=== PATIENT | male | born 1990 | race Caucasian/White ===

== ENCOUNTER 2019-09-15 15:00 | Emergency (ER) | payer BC ==
--- NOTE | 2019-09-15 15:09 | EDM.PDOC ---
ED HPI GENERAL MEDICAL PROBLEM - General Stated Complaint: DIZZY, SOB, Time Seen by Provider: 09/15/19 15:09 Source of Information: Reports: Patient History Limitations: Reports: No Limitations - History of Present Illness INITIAL COMMENTS - FREE TEXT/NARRATIVE: 29-year-old male who reports at approximately 11 AM today while at work and sitting and talking to a customer an acute onset of severe spinning dizziness. He states that he felt near syncopal. He reports that he got up and walked outside to get some fresh air but the dizziness did not seem to lindsay and he ended up going home. The dizziness was in that it seemed to wax and wane in intensity. To be worse with movement of his head but at times it would just come on with no movement of his head. He also felt somewhat short of breath when he had extreme dizziness. He had no headache. He had no chest pain. He didn 't feel at times and his heart was beating more fast and normal. He did feel somewhat better when lying down. For about the past month and a half he has had just an and has been through 2 courses of antibiotics and reports that he still has bilateral ear pain and some sinus congestion with intermittent discharge from his nose. He has had no fevers or chills. Nausea has been associated with this but there has been no vomiting. His vision appears to be normal. He feels very anxious right now. He did have some mild tingling and numbness in his left hand distally with this but he has no symptoms now. He has had episodes of dizziness in the recent past but they have been short-lived, mild nothing as severe as he had today. He has been eating and drinking normally. No diarrhea. The pain in his ears is mild and it is a full, pressure type feeling. There is no neck stiffness. There are no other associated signs or symptoms. There are no other modifying factors. Apparently he has had some issues with anxiety recently and he was prescribed BuSpar but has not been on that medication yet. He presents here via private vehicle with his significant other. Onset: Today Duration: Waxing/Waning (But not going away) Location: Reports: Other (Bilateral ears) Quality: Reports: Pressure (Fullness) Severity: Mild (The ear pain is mild but the dizziness is moderate to severe and varies in intensity.) Improves with: Reports: Rest, Other Worsens with: Reports: Movement Associated Symptoms: Reports: Nausea/Vomiting, Shortness of Breath, Other ( Otherwise as above) Treatments BEHAVIORAL HEALTH TECH: Reports: Other (see below) - Related Data Allergies Allergy/AdvReac Type Severity Reaction Status Date / Time fluoxetine Allergy Hives Verified 09/15/19 15:09 Home Meds: Home Meds Cefdinir [Omnicef] 600 mg PO DAILY 10 Days #20 cap 09/15/19 [Rx] Meclizine [Antivert] 25 mg PO Q6H PRN #14 tab 09/15/19 [Rx] Metoprolol Succinate 50 mg DAILY 09/15/19 [History] lisinopriL [Lisinopril] 10 mg DAILY 09/15/19 [History] Past Medical History Cardiovascular History: Reports: Hypertension Psychiatric History: Reports: Anxiety - Past Surgical History Other Surgical History Comment: No previous surgeries. Social & Family History - Tobacco Use Smoking Status *Q: Never Smoker Tobacco Use Within Last Twelve Months: Smokeless Tobacco ([place]) - Alcohol Use Alcohol Use History: Yes Alcohol Use Frequency: Weekly (3-4 times a week) - Living Situation & Occupation Living situation: Reports: with Significant Other Occupation: Employed ([employer]) ED ROS GENERAL - Review of Systems Review Of Systems: See Below Constitutional: Reports: No Symptoms HEENT: Reports: Ear Pain. Denies: Vision Change Respiratory: Reports: Shortness of Breath (With the episodes of extreme dizziness) Cardiovascular: Reports: Palpitations. Denies: Chest Pain Endocrine: Reports: No Symptoms GI/Abdominal: Reports: Nausea (Mild and intermittent). Denies: Vomiting : Reports: No Symptoms Musculoskeletal: Reports: No Symptoms Skin: Reports: No Symptoms Neurological: Reports: Dizziness. Denies: Headache Psychiatric: Reports: Anxiety Hematologic/Lymphatic: Reports: No Symptoms Immunologic: Reports: No Symptoms ED EXAM, GENERAL - Physical Exam Exam: See Below Exam Limited By: No Limitations General Appearance: Alert, WD/WN, Anxious, Moderate Distress Eye Exam: Bilateral Eye: EOMI, Normal Inspection, PERRL Ears: Normal External Exam, Normal Canal, Other (Bilateral TMs are dull) Ear Exam: Bilateral Ear: Auricle Normal, Canal Normal, TM Dull Nose: Normal Inspection, Normal Mucosa, No Blood Throat/Mouth: Normal Inspection, Normal Lips, Normal Oropharynx, Normal Voice, No Airway Compromise Head: Atraumatic, Normocephalic Neck: Normal Inspection, Supple, Non-Tender, Full Range of Motion Respiratory/Chest: No Respiratory Distress, Lungs Clear, Normal Breath Sounds, No Accessory Muscle Use, Chest Non-Tender Cardiovascular: Normal Peripheral Pulses, Regular Rate, Rhythm, No Edema, No JVD Peripheral Pulses: 2+: Radial (L), Radial (R) GI/Abdominal: Normal Bowel Sounds, Soft, Non-Tender, No Organomegaly, No Distention Back Exam: Normal Inspection Extremities: Normal Inspection, Normal Range of Motion, Non-Tender, Normal Capillary Refill Neurological: Alert, Oriented, CN II-XII Intact, Normal Cognition, Normal Gait, No Motor/Sensory Deficits Psychiatric: Anxious Skin Exam: Warm, Dry, Intact, Normal Color, No Rash Lymphatic: No Adenopathy EKG INTERPRETATION EKG Date: 09/15/19 Time: 15:58 Rhythm: NSR Rate (Beats/Min): 78 [place]: Normal P-Wave: Present QRS: Normal ST-T: Normal QT: Normal Comparison: NA - No Prior EKG EKG Interpretation Comments: Normal EKG Course - Vital Signs Last Recorded V/S: Last Vital Signs Temp 36.6 C 09/15/19 15:03 Pulse 84 09/15/19 15:03 Resp 20 09/15/19 15:03 BP 160/78 H 09/15/19 15:03 Pulse Ox 99 09/15/19 15:03 - Orders/Labs/Meds Orders: Active Orders 24 hr Category Date Time Status EKG Documentation Completion [RC] ASDIRECTED Care 09/15/19 15:47 Active Orthostatic Vital Signs [RC] ASDIRECTED Care 09/15/19 15:46 Active Sodium Chloride 0.9% [Saline Flush] Med 09/15/19 15:46 Active 10 ml FLUSH ASDIRECTED PRN Peripheral IV Insertion Adult [OM.PC] Routine Oth 09/15/19 15:46 Ordered EKG 12 Lead [EK] Routine Ther 09/15/19 15:46 Ordered Medication Orders Sodium Chloride (Saline Flush) 10 ml FLUSH ASDIRECTED PRN PRN Reason: Keep Vein Open Last Admin: 09/15/19 16:20 Dose: 10 ml Labs: Laboratory Tests 09/15/19 09/15/19 09/15/19 Range/Units 15:46 16:21 16:21 WBC 11.3 (4.5-12.0) X10-3/uL RBC 4.87 (4.30-5.75) x10(6)uL Hgb 15.6 (13.5-17.8) g/dL Hct 44.9 (30.0-51.3) % MCV 92.1 (80-96) fL MCH 32.0 (27.7-33.6) pg MCHC 34.7 (32.2-35.4) g/dL RDW 12.1 (11.5-15.5) % Plt Count 288 (125-369) X10(3)uL MPV 7.6 (7.4-10.4) fL Neut % (Auto) 78.6 (46-82) % Lymph % (Auto) 13.1 (13-37) % [place] % (Auto) 7.3 (4-12) % Eos % (Auto) 0 L (1.0-5.0) % Baso % (Auto) 1 (0-2) % Neut # (Auto) 8.9 H (1.6-8.3) # Lymph # (Auto) 1.5 (0.6-5.0) # [place] # (Auto) 0.8 (0.0-1.3) # Eos # (Auto) 0.0 (0.0-0.8) # Baso # (Auto) 0.1 (0.0-0.2) # Sodium 142 (135-145) mmol/L Potassium 4.2 (3.5-5.3) mmol/L Chloride 102 (100-110) mmol/L Carbon Dioxide 28 (21-32) mmol/L BUN 11 (7-18) mg/dL Creatinine 0.9 (0.70-1.30) mg/dL Est Cr Clr Drug Dosing 131.73 mL/min Estimated GFR (MDRD) > 60 (>60) BUN/Creatinine Ratio 12.2 (9-20) Glucose 96 (80-116) mg/dL Calcium 9.4 (8.6-10.2) mg/dL Magnesium 2.1 (1.8-2.5) mg/dL Total Bilirubin 0.7 (0.1-1.3) mg/dL AST 33 H (5-25) IU/L ALT 57 H (12-36) U/L Alkaline Phosphatase 52 L (56-112) IU/L C-Reactive Protein (0.5-0.9) mg/dL Total Protein 8.1 H (6.0-8.0) g/dL Albumin 4.7 (3.5-5.2) g/dL Globulin 3.4 g/dL Albumin/Globulin Ratio 1.4 TSH, Ultra Sensitive (0.36-3.74) IU/mL Urine Color Yellow (YELLOW) Urine Appearance Clear (CLEAR) Urine pH 7.0 H (5.0-6.5) Ur Specific [place] 1.005 L (1.010-1.025) Urine Protein Negative (NEGATIVE) mg/dL Urine Glucose (UA) Normal (NORMAL) mg/dL Urine Ketones Negative (NEGATIVE) mg/dL Urine Occult Blood Negative (NEGATIVE) Urine Nitrite Negative (NEGATIVE) Urine Bilirubin Negative (NEGATIVE) Urine Urobilinogen Normal (NEGATIVE) mg/dL Ur Leukocyte Esterase Negative (NEGATIVE) Urine RBC Not seen (0-5) Urine WBC Not seen (0-5) 09/15/19 09/15/19 Range/Units 16:21 16:21 WBC (4.5-12.0) X10-3/uL RBC (4.30-5.75) x10(6)uL Hgb (13.5-17.8) g/dL Hct (30.0-51.3) % MCV (80-96) fL MCH (27.7-33.6) pg MCHC (32.2-35.4) g/dL RDW (11.5-15.5) % Plt Count (125-369) X10(3)uL MPV (7.4-10.4) fL Neut % (Auto) (46-82) % Lymph % (Auto) (13-37) % [place] % (Auto) (4-12) % Eos % (Auto) (1.0-5.0) % Baso % (Auto) (0-2) % Neut # (Auto) (1.6-8.3) # Lymph # (Auto) (0.6-5.0) # [place] # (Auto) (0.0-1.3) # Eos # (Auto) (0.0-0.8) # Baso # (Auto) (0.0-0.2) # Sodium (135-145) mmol/L Potassium (3.5-5.3) mmol/L Chloride (100-110) mmol/L Carbon Dioxide (21-32) mmol/L BUN (7-18) mg/dL Creatinine (0.70-1.30) mg/dL Est Cr Clr Drug Dosing mL/min Estimated GFR (MDRD) (>60) BUN/Creatinine Ratio (9-20) Glucose (80-116) mg/dL Calcium (8.6-10.2) mg/dL Magnesium (1.8-2.5) mg/dL Total Bilirubin (0.1-1.3) mg/dL AST (5-25) IU/L ALT (12-36) U/L Alkaline Phosphatase (56-112) IU/L C-Reactive Protein 0.4 L (0.5-0.9) mg/dL Total Protein (6.0-8.0) g/dL Albumin (3.5-5.2) g/dL Globulin g/dL Albumin/Globulin Ratio TSH, Ultra Sensitive 1.22 (0.36-3.74) IU/mL Urine Color (YELLOW) Urine Appearance (CLEAR) Urine pH (5.0-6.5) Ur Specific [place] (1.010-1.025) Urine Protein (NEGATIVE) mg/dL Urine Glucose (UA) (NORMAL) mg/dL Urine Ketones (NEGATIVE) mg/dL Urine Occult Blood (NEGATIVE) Urine Nitrite (NEGATIVE) Urine Bilirubin (NEGATIVE) Urine Urobilinogen (NEGATIVE) mg/dL Ur Leukocyte Esterase (NEGATIVE) Urine RBC (0-5) Urine WBC (0-5) Meds: Medications Generic Name Dose Route Start Last Admin Trade Name Freq PRN Reason Stop Dose Admin Sodium Chloride 10 ml 09/15/19 15:46 09/15/19 16:20 Saline Flush FLUSH 10 ml ASDIRECTED PRN Administration Keep Vein Open Discontinued Medications Generic Name Dose Route Start Last Admin Trade Name Freq PRN Reason Stop Dose Admin Diazepam 2.5 mg 09/15/19 15:48 09/15/19 16:23 Valium IVPUSH 09/15/19 15:49 2.5 mg ONETIME ONE Administration Diazepam 2.5 mg 09/15/19 17:39 Valium IVPUSH 01/24/20 17:40 ONETIME ONE Sodium Chloride 1,000 mls @ 999 mls/hr 09/15/19 15:48 09/15/19 16:22 Normal Saline IV 09/15/19 16:48 999 mls/hr .BOLUS ONE Administration Meclizine HCl 25 mg 09/15/19 15:48 09/15/19 16:24 Antivert PO 09/15/19 15:49 25 mg ONETIME ONE Administration - Radiology Interpretation Free Text/Narrative:: CT scan of the head showed no acute abnormality and this included no evidence of sinusitis per the radiologist. - Re-Assessments/Exams Free Text/Narrative Re-Assessment/Exam: 09/15/19 18:00: Lab tests are reassuring except for mild elevation in his liver function tests. The CT scan was normal. He has received milliliters a bolus, meclizine 25 mg by mouth and Valium 2.5 mg IV. His dizziness is much improved, however, he still has some dizziness. He would rated as about half of what he had. He is having no shortness of breath. He has remained vitally stable. I feel that he is stable for discharge at this point. I discussed with the patient that to consider withholding alcohol (secondary to his elevated liver function tests). I will also place the patient on cefdinir for treatment of his ear infection. I will also give the patient a prescription for meclizine to use for dizziness. He should take a Claritin daily. He also needs to follow-up with Dr. Hopson in the next 1-2 weeks as he will need workup and rechecking of his liver function tests. Departure - Departure Time of Disposition: 18:15 Disposition: Home, Self-Care 01 Condition: Good (Improved) Clinical Impression: Dizziness, Elevated liver function tests, Anxiety Middle ear infection affecting both ears Qualifiers: Otitis media type: unspecified Qualified Code(s): H66.93 - Otitis media, unspecified, bilateral - Discharge Information Prescriptions: Cefdinir [Omnicef] 600 mg PO DAILY 10 Days #20 cap Meclizine [Antivert] 25 mg PO Q6H PRN #14 tab PRN Reason: Dizziness Instructions: Otitis Media, Adult, [id number], Dizziness, [id number] Referrals: Law Hopson MD [Primary Care Provider] - Additional Instructions: Your EKG was normal. The CT scan of your head was normal and it showed no evidence of a sinus infection. Your blood tests were all reassuringly normal except you had some mild elevation in your liver tests. As we discussed this could be related to excess alcohol use and I would suggest that you decrease your alcohol use for the time being. I am unsure why you are having the dizziness but you do appear to have bilateral ear infections and I am treating you for this (Cefdinir 300 mg). I have also given you a prescription of meclizine that you could use as needed for dizziness. This is for treating your symptom only and you should only take the meclizine if you are having dizziness. You should also take a Claritin daily as a trial. Increase your fluid intake. No work for the next 2 days. Back to the emergency department for worsening dizziness, unrelenting vomiting, high fever, severe headache any other concerning sign or symptom. Follow-up with Dr. Hopson within the next 1-2 weeks as you will need to have your liver tests rechecked still you may need further workup into her symptoms of dizziness and anxiety. Sepsis Event Note - Focused Exam Vital Signs: Vital Signs Temp Pulse Resp BP Pulse Ox 09/15/19 15:03 36.6 C 84 20 160/78 H 99 Date Exam was Performed: 09/15/19 Time Exam was Performed: 18:04 - My Orders Last 24 Hours: My Active Orders 09/15/19 15:46 Orthostatic Vital Signs [RC] ASDIRECTED Sodium Chloride 0.9% [Saline Flush] 10 ml FLUSH ASDIRECTED PRN Peripheral IV Insertion Adult [OM.PC] Routine EKG 12 Lead [EK] Routine 09/15/19 15:47 EKG Documentation Completion [RC] ASDIRECTED - Assessment/Plan Last 24 Hours: My Active Orders 09/15/19 15:46 Orthostatic Vital Signs [RC] ASDIRECTED Sodium Chloride 0.9% [Saline Flush] 10 ml FLUSH ASDIRECTED PRN Peripheral IV Insertion Adult [OM.PC] Routine EKG 12 Lead [EK] Routine 09/15/19 15:47 EKG Documentation Completion [RC] ASDIRECTED
[2019-09-15] MEDS ORDERED: Sodium Chloride 0.9% 1,000 ML IV ONE (15:48)
[2019-09-15] MEDS ORDERED: Meclizine 25 MG Tab PO ONE (15:48)
[2019-09-15] MEDS: Sodium Chloride 0.9% 10 ML Syringe FLUSH PRN ×2 (16:20→18:20)
--- NOTE | 2019-09-15 17:13 | CT ---
INDICATION: Dizziness. CT HEAD WITHOUT CONTRAST: Spiral 3.75 mm axial sections were obtained through the brain without contrast 09/15/19 - no comparisons. Total exam DLP was 1476.93 mGy-cm. No shift or midline structures, ventricular abnormalities or abnormal areas of density were identified - no bleeding site or hematoma was seen. No acute intracranial abnormalities were suggested. Frontal air cells and the remainder of the paranasal sinuses appear to be well aerated, as are the mastoid air cells. The cranium appears to be intact. The orbits appear to be intact. IMPRESSION: Normal CT brain without contrast. Report was called Dr. Mckinnon at 1615 hours. [facility]
[2019-09-15] MEDS ORDERED: Cefdinir 300 MG Cap PO ONE (18:22)
== END 2019-09-15 18:47 | disposition home or self-care (01) ==
LOC: FB.ED 15:00
DX: H66.93 Otitis media, unspecified, bilateral (principal); R79.89 Other specified abnormal findings of blood chemistry; F41.9 Anxiety disorder, unspecified; Z79.899 Other long term (current) drug therapy; Z88.8 Allergy status to other drugs, medicaments and biological substances
CPT/HCPCS: 70450; 80053; 81001; 83735; 84443; 85025; 86140; 93005; 96361; 96374; 96375; 99284; A9270; J3360; J7030